=== PATIENT | female | born 1975 | race Caucasian/White ===

== ENCOUNTER 2020-02-08 20:28 | Emergency (ER) | payer OTHER ==
[2020-02-08] MEDS ORDERED: HYDROXYZINE HCL 25 MG TABLET ONE (21:09)
[2020-02-08] MEDS ORDERED: ACETAMINOPHEN EXTRA STRENGTH 500 MG TABLET ONE (21:09)
== END 2020-02-08 22:29 | disposition home or self-care (01) ==
LOC: EDH 20:28
DX: S01.01XD Laceration without foreign body of scalp, subsequent encounter (principal); F41.9 Anxiety disorder, unspecified; F31.9 Bipolar disorder, unspecified; F20.9 Schizophrenia, unspecified; Z72.0 Tobacco use; X58.XXXD Exposure to other specified factors, subsequent encounter